=== PATIENT | female | born 1985 | race Caucasian/White ===

== ENCOUNTER → 2020-12-27 08:23 | Outpatient (CLI) | payer OTHER, SELFPAY ==
--- NOTE | ~2020-12-27 | XR_ITS ---
EXAMINATION: XR knee RT 3V DATE: 12/27/2020 09:08 INDICATION: Right knee pain. TECHNIQUE: 3 views of right knee with some views standing were obtained. COMPARISON: None. FINDINGS: Bone alignment is normal. No fracture. Joint spaces are well maintained. There is no knee j oint effusion. IMPRESSION: 1. Normal right knee. Reviewed, dictated and finalized at location A. IMPRESSION: 1. Normal right knee.
== END ==
PROVIDERS: PCP Nurse Practitioner Family; Visit Provider Nurse Practitioner Family
DX: M25.561 Pain in right knee (principal)
CPT/HCPCS: 73562

== ENCOUNTER 2021-05-12 10:50 | Emergency (ER) | payer OTHER, SELFPAY ==
--- NOTE | ~2021-05-12 | XR_ITS ---
EXAMINATION: XR finger 1st LT min 2V DATE: 05/12/2021 11:11 INDICATION: Left first metacarpal pain post fall TECHNIQUE: Dorsal palmar, lateral and oblique views of the left first digit were obtained COMPARISON: None FINDINGS: Alignment is normal. No fracture. Joint spaces are normal. Soft tissues are unremarkable. IMPRESSION: 1. Negative left thumb radiographs. Reviewed, dictated and finalized at location A. TELLER
[2021-05-12 11:00] VITALS: BP 118/71; PULSE 76; RESP 18; TEMP 37.5; O2SAT 100
--- NOTE | 2021-05-12 11:00 | ED.LOWEXIN ---
HPI - Extremity Injury (Lower) General Chief Complaint: Extremity Injury, Lower Stated Complaint: Pain Lt Thumb,Rt ankle Pain Time Seen by Provider: 05/12/21 11:00 Source: patient and RN notes reviewed History of Present Illness HPI Narrative: Patient is a 35-year-old female who presents the urgent care with complaints of a left thumb and right ankle injury. Patient states that she was playing soccer last night and twisted the right ankle, falling to the left side. Patient states that the ankle feels better this morning but there is notable swelling. Patient is ambulating normally wearing a small heeled boot. States that she is more concerned with the left thumb. States that the bruising and swelling has worsened overnight. Patient has not done anything [id number] for her symptoms. Denies of any other injuries from the incident. No other acute complaints. No acute distress noted. Patient aware of the plan of care. Some parts of this dictation were generated by voice recognition software and may contain typographical and/or grammatical inaccuracies. Related Data Home Medications Medication Instructions Recorded Confirmed ascorbic acid (vitamin C) [Vitamin 500 mg PO DAILY 03/06/21 05/12/21 C] lactobacillus comb no.10 20,000 mmu cells PO DAILY 03/06/21 05/12/21 [Probiotic] Allergies Allergy/AdvReac Type Severity Reaction Status Date / Time No Known Allergies Allergy Unknown Verified 05/12/21 10:59 Review of Systems Review of Systems: CONSTITUTIONAL: Denies fever, chills, or sweats. EYES: Denies visual changes, redness, or discharge. ENT: Denies rhinorrhea, congestion, sore throat, or otalgia. CARDIOVASCULAR: Denies chest pain, palpitations, or edema. RESPIRATORY: Denies cough or dyspnea. GASTROINTESTINAL: Denies abdominal pain, nausea, vomiting, or diarrhea. GENITOURINARY: Denies dysuria or hematuria. SKIN: Denies rash or itching. MUSCULOSKELETAL: Reports of left thumb pain and bruising and left ankle swelling NEUROLOGIC: Denies headache, numbness, or weakness. All other systems reviewed are negative, except as documented in HPI. [facility] Social History Social History Smoking status: Never smoker Alcohol intake: current Drinks per week: 6 Substance use: never Substance use type: does not use Spiritual care concerns: No Comments At the time of my signature, I reviewed and agree with the nursing past medical, surgical, social, and family history. There is no relevant family history pertinent to the patient complaint. Exam Narrative: GENERAL: This is a well-nourished, well-developed patient, in no apparent distress. HEAD: normocephalic, atraumatic. EYES: PERRL. Sclera clear/white. Vision is grossly intact. EARS: External ears normal NOSE: External nose normal with no obvious nasal discharge, nares without redness, no rhinorrhea. THROAT: Mucous membranes moist NECK: Neck supple CARDIOVASCULAR: Regular rate and rhythm without murmurs, gallops, or rubs. RESPIRATORY: Clear to auscultation. Breath sounds equal bilaterally. No wheezes, rales, or rhonchi. SKIN: warm, intact with no suspicious lesions or rash, good texture and turgor. NEURO: awake, alert, and oriented to person, place and time. There were no obvious focal neurologic abnormalities. EXTREMITIES: Mild to moderate edema and ecchymosis noted to the MCP of the left thumb extending to the PIP with moderate tenderness. Range of motion not tested due to pain. Positive strong left radial pulse with capillary refill less than 2 seconds. Mild edema noted to the lateral right malleolus with mild tenderness. Mild exacerbated pain on lateral flexion otherwise range of motion within normal limits. Positive strong right pedal pulse with capillary refill less than 2 seconds. Course Vital Signs Vital signs: Vital Signs Temperature 99.5 F 05/12/21 11:00 Pulse Rate 76 05/12/21 11:00 Respiratory Rate 18 05/12/21 11:00 Blood Pressure 118
== END 2021-05-12 11:25 | disposition home or self-care (01) ==
PROVIDERS: Emergency Provider Nurse Practitioner Family; PCP Nurse Practitioner Family
DX: M25.471 Effusion, right ankle (principal); S63.642A Sprain of metacarpophalangeal joint of left thumb, initial encounter; W19.XXXA Unspecified fall, initial encounter; Y93.66 Activity, soccer
CPT/HCPCS: 73140; 99213; G0463

== ENCOUNTER 2023-02-11 08:36 | Emergency (ER) | payer OTHER, SELFPAY ==
--- NOTE | 2023-02-11 08:42 | ED.FEMALEGU ---
HPI - Female Genitourinary General Chief complaint: Urogenital-Female Stated complaint: Female Urogenital Time Seen by Provider: 02/11/23 08:42 Source: patient, RN notes reviewed and old records reviewed Mode of arrival: ambulatory Limitations: no limitations History of Present Illness HPI Narrative: 37-year-old female presents to the [facility] with concerns for a UTI. 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 On WednesdayFebruary 02 started with frequency, urgency and burning with urination. Was prescribe Cipro. Symptoms improved a little bit but not completely, was prescribed bactrim but did not start taking Bactrim until yesterday. Has taken 1 dose. Has also taken azo Patient continues to have frequency with urgency. Denies any burning, fevers, abdominal pain, back pain Related Data Home Medications Medication Instructions Recorded Confirmed ascorbic acid (vitamin C) 500 mg 500 mg PO DAILY 03/06/21 02/11/23 tablet (Vitamin C) lactobacillus comb no.10 20 20,000 mmu cells PO DAILY 03/06/21 02/11/23 billion cell capsule (Probiotic) etonogestrel 0.12 mg-ethinyl 1 vag ring vaginal WEEKLY 02/11/23 02/11/23 estradiol 0.015 mg/24 hr vaginal ring (EluRyng) levothyroxine 50 mcg tablet 50 mcg PO DAILY 02/11/23 02/11/23 sulfamethoxazole 800 1 tablet PO BID 02/11/23 02/11/23 mg-trimethoprim 160 mg tablet Allergies Allergy/AdvReac Type Severity Reaction Status Date / Time No Known Allergies Allergy Unknown Verified 02/11/23 08:55 Review of Systems Review of Systems: All systems reviewed & are unremarkable except as noted in HPI and below Constitutional: Constitutional: Reports no additional constitutional complaints Eyes: Eyes: Reports no additional eye complaints ENT: Reports system reviewed and no additional complaints, except as documented Cardiovascular: Cardiovascular: Reports no additional cardiovascular complaints, Denies chest pain and Denies dyspnea Respiratory: Respiratory: Reports no additional respiratory complaints, Denies chest congestion, Denies cough and Denies dyspnea Gastrointestinal: Gastrointestinal: Reports no additional gastrointestinal complaints, Denies abdominal pain, Denies nausea and Denies vomiting Genitourinary: Genitourinary: Reports as per HPI Musculoskeletal: Musculoskeletal: Reports no additional musculoskeletal complaints Integumentary/Breasts: Skin/Breast: Reports system reviewed and no additional complaints, except as docu Neurologic: Reports system reviewed and no additional complaints, except as documented Psychiatric: Psychiatric: Reports no additional psychiatric complaints Allergic/Immunologic: Allergic/Immunologic: Reports no additional allergic/immunologic complaints PMFSH Social History Social History Smoking status: Never smoker Alcohol intake: current Drinks per week: 6 Substance use: never Substance use type: does not use Living arrangements: with family Spiritual care concerns: No Comments At the time of my signature, I reviewed and agree with the nursing past medical, surgical, social, and family history. There is no relevant family history pertinent to the patient complaint. Exam Const: General: cooperative, healthy appearing, comfortable, no acute distress, well developed, alert and well nourished Nutritional Appearance: well nourished Orientation/consciousness: patient oriented x3 Limitations: no limitations HENMT: Head: normal to inspection Ears: hearing grossly normal bilaterally and external ears normal Face/Nose/Sinus: Normal external nose present, Normal nares present, Normal nasal mucous membranes and turbinates present and normal facial exam Face and sinus: normal facial exam Mouth: Yes lip normal Eyes: General: appearance normal, both eyes and all related structures Alignment and Position: alignment normal Periorbital: periorbital
[2023-02-11 08:46] VITALS: BP 108/65; PULSE 65; RESP 18; TEMP 36.6; O2SAT 100
== END 2023-02-11 09:05 | disposition home or self-care (01) ==
PROVIDERS: Emergency Provider Nurse Practitioner; PCP Family Medicine
DX: N30.01 Acute cystitis with hematuria (principal); Z86.16 Personal history of COVID-19
CPT/HCPCS: 81003; 87086; 87088; 99213; G0463

== ENCOUNTER 2023-02-18 12:35 | Emergency (ER) | payer OTHER, SELFPAY ==
[2023-02-18 12:49] VITALS: BP 116/60; PULSE 72; RESP 18; TEMP 36.6; O2SAT 100
--- NOTE | 2023-02-18 13:02 | ED.FEMALEGU ---
HPI - Female Genitourinary General Chief complaint: Urogenital-Female Stated complaint: UTI-ongoing Time Seen by Provider: 02/18/23 13:02 Source: patient Mode of arrival: ambulatory History of Present Illness HPI Narrative: 37 years old white female came to the hospital with urgency and burning urination over the last 3 weeks. Patient failed 2 courses of antibiotic, Cipro twice daily for 5 days, Bactrim twice daily for 5 days. Patient reports white vaginal discharge without itching, history of bacterial vaginosis. She denies any possibility of STD. She denies any fever, chills, nausea, vomiting or abdominal pain. Related Data Home Medications Medication Instructions Recorded Confirmed ascorbic acid (vitamin C) 500 mg 500 mg PO DAILY 03/06/21 02/11/23 tablet (Vitamin C) lactobacillus comb no.10 20 20,000 mmu cells PO DAILY 03/06/21 02/11/23 billion cell capsule (Probiotic) etonogestrel 0.12 mg-ethinyl 1 vag ring vaginal WEEKLY 02/11/23 02/11/23 estradiol 0.015 mg/24 hr vaginal ring (EluRyng) levothyroxine 50 mcg tablet 50 mcg PO DAILY 02/11/23 02/11/23 sulfamethoxazole 800 1 tablet PO BID 02/11/23 02/11/23 mg-trimethoprim 160 mg tablet Allergies Allergy/AdvReac Type Severity Reaction Status Date / Time No Known Allergies Allergy Unknown Verified 02/11/23 08:55 Review of Systems Review of Systems: All systems reviewed & are unremarkable except as noted in HPI and below PMFSH Social History Social History Smoking status: Never smoker Alcohol intake: current Drinks per week: 6 Substance use: never Substance use type: does not use Living arrangements: with family Spiritual care concerns: No Exam Narrative: General appearance: Well-developed, well-nourished Skin: Normal color Head: Normocephalic, nontraumatic Eyes: Clear conjunctiva ENT: Oropharynx normal, ears normal, nose normal Neck: Supple, nontender Chest and respiratory: Airway patent, no respiratory distress, no accessory muscle use Heart: Regular rate/rhythm Abdomen: Soft, nontender, no organomegaly, quiet bowel sounds Vascular: Normal peripheral pulses, normal capillary refill. Musculoskeletal: Normal range of motion, nontender back Neurologic: Alert and oriented ?3, INSTRUCTIONAL MATERIALS DIRECTOR is normal as tested, no gross motor deficit Course Vital Signs Vital signs: Vital Signs Temperature 36.6 C 02/18/23 12:49 Pulse Rate 72 02/18/23 12:49 Respiratory Rate 18 02/18/23 12:49 Blood Pressure 116/60 02/18/23 12:49 Pulse Oximetry 100 02/18/23 12:49 Oxygen Delivery Room Air 02/18/23 12:49 Temperature 36.6 C 02/18/23 12:49 Pulse Rate 67 02/18/23 13:32 Respiratory Rate 18 02/18/23 12:49 Blood Pressure 116/60 02/18/23 13:32 Pulse Oximetry 98 02/18/23 13:45 Oxygen Delivery Room Air 02/18/23 12:49 MDM - Female Genitourinary MDM Narrative Medical decision making narrative: Patient had 2 courses of antibiotic including Cipro and Bactrim, 5 days each without any improvement of the urinary tract symptoms. Physical exam showed no significant abnormality, Differential diagnosis include urethritis, cystitis, vaginal discharge secondary to yeast infection and/or bacterial vaginosis. Work-up today include urine which showed significant infection. Patient denies any nausea or vomiting. 1 g of Rocephin IV given in the ED. Patient to be discharged on Macrobid 100 twice daily for 5 days, Diflucan and metronidazole for possible yeast infection and/or bacterial vaginosis. Patient was notified that urine culture will help us to get the right appropriate antibiotic. Patient unde
[2023-02-18 13:12] LABS: Appearance Urine Cloudy (Clear); Bacteria Urine 3+ /hpf; Bilirubin Urine Negative (Negative); Blood Urine 2+ (Negative); Color Urine Yellow (Yellow); Glucose Urine UA Negative (Negative); Ketones Urine Negative (Negative); Leukocyte Esterase Ur 3+ LEU/UL (Negative); Need Manual Microscopic Reviewed; Nitrate Urine Negative (Negative); Protein Urine Negative (Negative); Specific Grav Ur 1.009 (1.001-1.035); Squamous Epithelial Cell Urine Few /hpf (Few); Urobilinogen Urine 0.2 mg/dL (<2.0); WBC Clumps Urine Present /HPF; WBC Urine >100 /hpf; pH Urine 5.5 (5.0-9.0)
[2023-02-18 13:32] VITALS: BP 116/60; PULSE 67
[2023-02-18 13:34] LABS: Add Urine Microscopic? YES
[2023-02-18 13:36] LABS: Pregnancy On Board Control Positive; Urine Pregnancy Test Negative
[2023-02-18 13:40] VITALS: O2SAT 99
[2023-02-18 13:45] VITALS: O2SAT 98
--- NOTE | 2023-02-18 13:46 | PC.NURSE ---
Pts IV infiltrated. IV was removed, new IV was placed WNL. Pt educated on IVs should not hurt them. Pt verbalized understanding of education.
== END 2023-02-18 14:27 | disposition home or self-care (01) ==
PROVIDERS: Emergency Provider Emergency Medicine; PCP Family Medicine
DX: N76.0 Acute vaginitis (principal); B37.31 Acute candidiasis of vulva and vagina; N39.0 Urinary tract infection, site not specified
CPT/HCPCS: 81001; 81025; 87077; 87086; 87186; 99283; J0696

== ENCOUNTER 2023-09-28 11:19 | Outpatient (CLI) | payer OTHER, SELFPAY ==
--- NOTE | ~2023-09-28 | CT_ITS ---
EXAMINATION: CT sinus wo con DATE: 09/28/2023 11:35 INDICATION: Chronic pansinusitis TECHNIQUE: Computed tomography (CT) of the paranasal sinuses was performed without intravenous contra st. The dose-length product was 252.58 mGy-cm. Automated exposure control and iterative reconstructio n technique were employed. COMPARISON: None FINDINGS: There is mucosal thickening of the right frontal, ethmoid and maxillary sinuses. No signifi cant mucoperiosteal reaction. Ostiomeatal units are occluded by soft tissue. Leftward nasal septal de viation. There is a right-sided leora bullosa. Mastoids are pneumatized. IMPRESSION: 1. Moderate sinusitis, likely chronic. Reviewed, dictated and finalized at location B.
== END 2023-09-28 11:20 ==
PROVIDERS: PCP Otolaryngology; Visit Provider Otolaryngology
DX: J32.4 Chronic pansinusitis (principal)
CPT/HCPCS: 70486

== ENCOUNTER 2024-09-26 15:43 | Outpatient (CLI) | payer OTHER, SELFPAY ==
--- NOTE | ~2024-09-26 | MM_ITS ---
EXAMINATION: MM screening radha BI w janine HISTORY: Screening TECHNIQUE: Craniocaudal and mediolateral oblique 3-D tomosynthesis images were obtained and synthetic 2-D images were generated. CAD analysis was submitted and interpreted. COMPARISON: No prior mammogram is available for comparison at this institution. BREAST PARENCHYMAL COMPOSITION: Dense: The breasts are extremely dense, which lowers the sensitivity of mammography. FINDINGS: There is no evidence of suspicious mass, calcification, or architectural distortion to sugg est malignancy in either breast. There has been no suspicious interval change. IMPRESSION: 1. No mammographic evidence of malignancy. 2. Recommend routine screening mammography in one year. BI-RADS Category 1: Negative Reviewed, dictated and finalized at location B.
== END 2024-09-26 15:44 | disposition home or self-care (01) ==
LOC: MICIMG 15:43
PROVIDERS: PCP Family Medicine; Visit Provider Family Medicine
DX: Z12.31 Encounter for screening mammogram for malignant neoplasm of breast (principal)
CPT/HCPCS: 77063; 77067

== ENCOUNTER 2025-04-18 08:45 | Outpatient (CLI) | payer OTHER, SELFPAY ==
--- NOTE | ~2025-04-18 | XR_ITS ---
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 Technique: 3 view. Findings: Bowel gas pattern unremarkable. No obstruction. No free air. No abnormal calcifications No acute osseous abnormality. Impression: 1. No acute abnormality. Reviewed, dictated and finalized at location P. ION CREWS ACTIVITIES CLERK Impression: 1. No acute abnormality.
--- NOTE | ~2025-04-18 | US_ITS ---
EXAMINATION: US abdomen complete, 04/18/2025 8:46 ASSISTANT MEDIA BUYER HISTORY: RUQ pain COMPARISON: None Technique: Mtz-scale and color Doppler images were obtained. Findings: LIVER: Lliver contours intact, no lesions. Normal echogenicity. . GALLBLADDER/BILIARY: Unremarkable.No cholelithiais, wall thickening or pericholecystic fluid. No biliary dilatation. CBD 4 mm. Harshaw sign negative. PANCREAS: Unremarkable. SPLEEN: Unremarkable, no splenomegaly. KIDNEYS: Right Kidney: Right kidney 9.6 x 3.8 x 7.4 cm, normal. Left Kidney: Left kidney 11.4 x 4.7 x 5.2 cm, normal AORTA: Normal caliber aorta. IVC: Unremarkable. FREE FLUID: None. Impression: No acute abnormality. Reviewed, dictated and finalized at location P. STANT MEDIA BUYER Impression: No acute abnormality.
== END 2025-04-18 08:46 | disposition home or self-care (01) ==
PROVIDERS: PCP Family Medicine; Visit Provider Family Medicine
DX: R10.11 Right upper quadrant pain (principal)
CPT/HCPCS: 74019; 76700